=== PATIENT | female | born 1945 | race Caucasian/White ===

== ENCOUNTER 2017-06-06 16:10 | Inpatient (IN) | payer MEDICARE, OTHER ==
[~2017-06-06] VITALS: Ht 167.6 cm; Wt 83.0 kg
[2017-06-06 17:24] LABS: HEMATOCRIT 39.4 % (36.0-48.0); HEMOGLOBIN 12.6 g/dL (12-16); MCH 27.7 pg (26.0-34.0); MCV 86.6 fL (80.0-100.0); PLATELET COUNT 249 10x3/uL (130-400); RBC 4.55 10x6/uL (4.00-5.40); RDW 14.9 % (11.5-14.5); WBC 23.2 10x3/uL (4.8-10.8)
[2017-06-06 17:46] LABS: ALBUMIN 3.5 g/dL (3.4-5.0); ALKALINE PHOSPHATASE 77 U/L (46-116); ALT (SGPT) 19 U/L (10-68); BILIRUBIN - TOTAL 1.03 mg/dL (0.2-1.3); CALC OSMOLALITY 273 mosm/kg (275-300); CALCIUM 9.1 mg/dL (8.5-10.1); CARBON DIOXIDE 25.6 mmol/L (21.0-32.0); CHLORIDE - SERUM 102 mmol/L (98-107); CREATININE - SERUM 0.7 mg/dL (0.6-1.3); GLUCOSE 115 mg/dL (74-106); PROTEIN - SERUM 6.6 g/dL (6.4-8.2); SODIUM 137 mmol/L (136-145); UREA NITROGEN 10 mg/dL (7-18); eGFR NON AFRICAN AMERICAN 87 mL/min (90-120)
[2017-06-06 17:47] LABS: APPEARANCE CLEAR (CLEAR); COLOR DK YELLOW (YELLOW); GLUCOSE NEGATIVE (NEGATIVE); KETONE LARGE mg/dL (NEGATIVE); NITRITE NEGATIVE (NEGATIVE); PROTEIN NEGATIVE (NEGATIVE)
[2017-06-06 17:48] LABS: BILIRUBIN NEGATIVE (NEGATIVE); UROBILINOGEN NORMAL (NORMAL)
[2017-06-06 17:49] LABS: EPITHELIAL CELLS 0-5 /hpf (0-5); RED CELLS - URINE 0-5 /hpf (0-5)
[2017-06-06 17:50] LABS: BACTERIA FEW /hpf (NONE SEEN); MUCUS <1+ /lpf (NONE SEEN)
[2017-06-06 17:55] LABS: PRO BNP 235 pg/mL (0-125)
[2017-06-06 17:57] LABS: TROPONIN-I < 0.017 ng/mL (0.000-0.060)
[2017-06-06 18:06] LABS: EOSINOPHILS 1 % (0-7); LYMPHOCYTES 17 % (15-50); MONOCYTES 1 % (2-11); NEUTROPHILS 78 % (40-80); PLATELET ESTIMATE NORMAL
[2017-06-06] MEDS ORDERED: SYNTHROID125 MCG PO (21:17)
[2017-06-06 21:18] VITALS: BP 130/54; BMI 29.1
[2017-06-06] MEDS ORDERED: LISINOPRIL5 MG PO (21:18)
[2017-06-07 00:30] VITALS: BP 161/50
[2017-06-07 04:30] VITALS: BP 144/45
[2017-06-07 06:15] LABS: BASOPHILS 0 % (0-2); EOSINOPHILS 0 % (0-7); HEMOGLOBIN 12.5 g/dL (12-16); IMMATURE GRANULOCYTES 0.5 % (0-5); LYMPHOCYTES 3.5 % (15-50); MCH 27.5 pg (26.0-34.0); MCHC 32.1 g/dL (31.0-37.0); MCV 85.7 fL (80.0-100.0); MEAN PLATELET VOLUME 10.2 fL (7.4-10.4); MONOCYTES 1.2 % (2-11); NEUTROPHILS 94.8 % (40-80); PLATELET COUNT 266 10x3/uL (130-400); RBC 4.55 10x6/uL (4.00-5.40); RDW 14.9 % (11.5-14.5); WBC 20.8 10x3/uL (4.8-10.8)
[2017-06-07 06:28] LABS: CALC OSMOLALITY 280 mosm/kg (275-300); CALCIUM 9.3 mg/dL (8.5-10.1); CARBON DIOXIDE 23.9 mmol/L (21.0-32.0); CHLORIDE - SERUM 103 mmol/L (98-107); CREATININE - SERUM 0.6 mg/dL (0.6-1.3); GLUCOSE 161 mg/dL (74-106); POTASSIUM - SERUM 3.7 mmol/L (3.5-5.1); SODIUM 139 mmol/L (136-145); UREA NITROGEN 12 mg/dL (7-18); eGFR NON AFRICAN AMERICAN > 90 mL/min (90-120)
[2017-06-07 08:06] VITALS: BP 142/64
[2017-06-07 11:43] VITALS: BP 151/54
[2017-06-07 15:45] VITALS: BP 161/44
[2017-06-07 20:29] VITALS: BP 138/52
[2017-06-08 01:15] VITALS: BP 146/55
[2017-06-08 05:21] VITALS: BP 162/60
[2017-06-08 06:03] LABS: BASOPHILS 0 % (0-2); EOSINOPHILS 0 % (0-7); HEMATOCRIT 37.8 % (36.0-48.0); IMMATURE GRANULOCYTES 0.5 % (0-5); LYMPHOCYTES 8.8 % (15-50); MCH 27.3 pg (26.0-34.0); MCHC 31.7 g/dL (31.0-37.0); MCV 85.9 fL (80.0-100.0); MEAN PLATELET VOLUME 10.4 fL (7.4-10.4); MONOCYTES 5.1 % (2-11); NEUTROPHILS 85.6 % (40-80); PLATELET COUNT 288 10x3/uL (130-400); RDW 14.8 % (11.5-14.5)
[2017-06-08 06:15] LABS: CALCIUM 8.8 mg/dL (8.5-10.1); CHLORIDE - SERUM 106 mmol/L (98-107); CREATININE - SERUM 0.7 mg/dL (0.6-1.3); POTASSIUM - SERUM 3.6 mmol/L (3.5-5.1); SODIUM 142 mmol/L (136-145); eGFR NON AFRICAN AMERICAN 87 mL/min (90-120)
[2017-06-08 06:24] LABS: CALC OSMOLALITY 285 mosm/kg (275-300); GLUCOSE 107 mg/dL (74-106); UREA NITROGEN 21 mg/dL (7-18)
[2017-06-08 07:22] VITALS: BP 167/60
[2017-06-08 11:13] VITALS: BP 173/56
[2017-06-08 17:06] VITALS: BP 158/76
[2017-06-08 20:00] VITALS: BP 184/59
[2017-06-09 04:00] VITALS: BP 154/54
[2017-06-09 05:46] LABS: BASOPHILS 0.1 % (0-2); EOSINOPHILS 0.6 % (0-7); HEMATOCRIT 36.7 % (36.0-48.0); HEMOGLOBIN 11.5 g/dL (12-16); IMMATURE GRANULOCYTES 0.2 % (0-5); LYMPHOCYTES 22.7 % (15-50); MCH 27.3 pg (26.0-34.0); MCHC 31.3 g/dL (31.0-37.0); MEAN PLATELET VOLUME 10.2 fL (7.4-10.4); MONOCYTES 8.4 % (2-11); PLATELET COUNT 272 10x3/uL (130-400); RBC 4.22 10x6/uL (4.00-5.40); RDW 14.7 % (11.5-14.5)
[2017-06-09 06:14] LABS: CALC OSMOLALITY 287 mosm/kg (275-300); CALCIUM 8.3 mg/dL (8.5-10.1); CARBON DIOXIDE 26.2 mmol/L (21.0-32.0); CHLORIDE - SERUM 107 mmol/L (98-107); CREATININE - SERUM 0.7 mg/dL (0.6-1.3); GLUCOSE 92 mg/dL (74-106); POTASSIUM - SERUM 3.6 mmol/L (3.5-5.1); SODIUM 144 mmol/L (136-145); UREA NITROGEN 16 mg/dL (7-18); eGFR NON AFRICAN AMERICAN 87 mL/min (90-120)
[2017-06-09 06:16] LABS: WBC 8.9 10x3/uL (4.8-10.8)
[2017-06-09 07:58] VITALS: BP 84/66
[2017-06-09 09:16] LABS: IMMUNOGLOBULIN A 132 mg/dL (64-422); IMMUNOGLOBULIN G 598 mg/dL (700-1600)
[2017-06-09 11:34] VITALS: BP 179/61
[2017-06-09 16:37] VITALS: BP 192/69
[2017-06-09 20:09] VITALS: BP 191/69
[2017-06-10 05:21] VITALS: BP 184/70
[2017-06-10 06:39] LABS: BASOPHILS 0.2 % (0-2); EOSINOPHILS 0.8 % (0-7); HEMATOCRIT 36.4 % (36.0-48.0); HEMOGLOBIN 11.4 g/dL (12-16); IMMATURE GRANULOCYTES 0.4 % (0-5); LYMPHOCYTES 27.2 % (15-50); MCHC 31.3 g/dL (31.0-37.0); MCV 86.1 fL (80.0-100.0); MEAN PLATELET VOLUME 10.5 fL (7.4-10.4); MONOCYTES 9.7 % (2-11); NEUTROPHILS 61.7 % (40-80); PLATELET COUNT 274 10x3/uL (130-400); RBC 4.23 10x6/uL (4.00-5.40); RDW 14.6 % (11.5-14.5); WBC 8.5 10x3/uL (4.8-10.8)
[2017-06-10 06:58] LABS: CALC OSMOLALITY 278 mosm/kg (275-300); CALCIUM 8.5 mg/dL (8.5-10.1); CARBON DIOXIDE 26.7 mmol/L (21.0-32.0); CHLORIDE - SERUM 105 mmol/L (98-107); CREATININE - SERUM 0.7 mg/dL (0.6-1.3); GLUCOSE 84 mg/dL (74-106); POTASSIUM - SERUM 3.4 mmol/L (3.5-5.1); SODIUM 141 mmol/L (136-145); eGFR NON AFRICAN AMERICAN 87 mL/min (90-120)
[2017-06-10 06:59] LABS: UREA NITROGEN 11 mg/dL (7-18)
[2017-06-10 08:45] VITALS: BP 181/59
[2017-06-10] MEDS ORDERED: PREDNISONE20 MG PO (10:06)
[2017-06-10] MEDS ORDERED: DOXYCYCLINE HY100 M2 PO (10:07)
[2017-06-10] MEDS ORDERED: OMNICEF300 MG PO (10:08)
[2017-06-10 12:49] VITALS: Ht 167.6 cm; Wt 83.0 kg
[2017-06-11 03:11] LABS: MYCOPLASMA PNEUMO IGG 408 U/mL (0-99)
[2017-06-11 15:25] LABS: LEGIONELLA ANTIGEN - URINE Negative (Negative)
[2017-06-12 07:23] LABS: IMMUNOGLOBULIN E 117 IU/mL (0-100)
[2017-06-12 17:09] LABS: FUNGAL - ASP FLAVUS Negative (Neg:<1:1); FUNGAL - ASP NIGER Negative (Neg:<1:1); FUNGAL - ASPER FUMIGATUS Negative (Neg:<1:1)
== END 2017-06-10 13:23 | disposition home or self-care (01) | DRG 177 ==
LOC: D.ER 16:10 → D.EDHOLD 19:29 → D.M2 19:29
PROVIDERS: Emergency Medicine; Family Medicine; Internal Medicine Pulmonary Disease
DX: J15.6 Pneumonia due to other Gram-negative bacteria (principal); J96.01 Acute respiratory failure with hypoxia; J84.9 Interstitial pulmonary disease, unspecified; J45.901 Unspecified asthma with (acute) exacerbation; J15.212 Pneumonia due to Methicillin resistant Staphylococcus aureus; E03.9 Hypothyroidism, unspecified; I10 Essential (primary) hypertension; R05 Cough; T46.4X5A Adverse effect of angiotensin-converting-enzyme inhibitors, initial encounter; Z20.89 Contact with and (suspected) exposure to other communicable diseases

== ENCOUNTER → 2017-07-06 09:19 | Outpatient (CLI) | payer MEDICARE, OTHER ==
[2017-06-10 12:49] VITALS: BMI 29.1
[~2017-07-06 09:19] MED LIST: DOXYCYCLINE HY100 M2 PO; LISINOPRIL5 MG PO; OMNICEF300 MG PO; PREDNISONE20 MG PO; SYNTHROID125 MCG PO
== END | disposition home or self-care (01) ==
LOC: D.RT 09:19
DX: J44.9 Chronic obstructive pulmonary disease, unspecified (principal)